=== PATIENT | male | born 1970 | race Caucasian/White ===

== ENCOUNTER → 2024-07-23 | Outpatient (CLI) | payer OTHER, SELFPAY ==
[2024-07-23 08:46] LABS: Alanine Aminotransferase 73 U/L (10-49); Albumin, Serum 4.8 gm/dL (3.5-5.0); Alkaline Phosphatase 87 U/L (46-116); Aspartate Amino Transferase 33 U/L (0-34); Bilirubin,Direct 0.5 mg/dL (0.0-0.3); Bilirubin,Total 1.5 mg/dL (0.3-1.2); Cardiac Risk Estimate 3.8 RATIO (4.0-6.7); Cholesterol 147 mg/dL (132-200); HDL Cholesterol 39 mg/dL (40-60); LDL Cholesterol,Calculated 84 mg/dL (0-130); Total Protein 6.8 gm/dL (5.7-8.2); Triglycerides 119 mg/dL (30-150)
== END | disposition home or self-care (01) ==
LOC: COPL 07:02
PROVIDERS: PCP Family Medicine; Referring Provider Family Medicine; Visit Provider Family Medicine
DX: E78.2 Mixed hyperlipidemia (principal)
CPT/HCPCS: 36415; 80061; 80076

== ENCOUNTER → 2024-10-27 | Outpatient (CLI) | payer OTHER, SELFPAY ==
[2024-10-27 09:05] LABS: Alanine Aminotransferase 50 U/L (10-49); Alkaline Phosphatase 88 U/L (46-116); Aspartate Amino Transferase 27 U/L (0-34); Bilirubin,Direct 0.6 mg/dL (0.0-0.3); Bilirubin,Total 2.2 mg/dL (0.3-1.2); Cardiac Risk Estimate 3.7 RATIO (4.0-6.7); Cholesterol 140 mg/dL (132-200); HDL Cholesterol 38 mg/dL (40-60); LDL Cholesterol,Calculated 53 mg/dL (0-130); Total Protein 7.1 gm/dL (5.7-8.2); Triglycerides 247 mg/dL (30-150)
== END | disposition home or self-care (01) ==
LOC: COPL 06:33
PROVIDERS: PCP Family Medicine; Referring Provider Family Medicine; Visit Provider Family Medicine
DX: R74.01 Elevation of levels of liver transaminase levels (principal)
CPT/HCPCS: 36415; 80061; 80076

== ENCOUNTER → 2025-01-22 | Outpatient (CLI) | payer OTHER, SELFPAY ==
[2025-01-22 08:48] LABS: Alanine Aminotransferase 34 U/L (10-49); Albumin, Serum 5.1 gm/dL (3.5-5.0); Alkaline Phosphatase 68 U/L (46-116); Aspartate Amino Transferase 28 U/L (0-34); Bilirubin,Direct 0.3 mg/dL (0.0-0.3); Bilirubin,Total 0.8 mg/dL (0.3-1.2); Cardiac Risk Estimate 4.0 RATIO (4.0-6.7); Cholesterol 159 mg/dL (132-200); HDL Cholesterol 40 mg/dL (40-60); LDL Cholesterol,Calculated 98 mg/dL (0-130); Total Protein 7.0 gm/dL (5.7-8.2); Triglycerides 107 mg/dL (30-150)
== END | disposition home or self-care (01) ==
PROVIDERS: PCP Family Medicine; Referring Provider Family Medicine; Visit Provider Family Medicine
DX: E78.2 Mixed hyperlipidemia (principal); R74.01 Elevation of levels of liver transaminase levels
CPT/HCPCS: 36415; 80061; 80076